=== PATIENT | female | born 1950 | race Two or more races ===

== ENCOUNTER 2021-08-02 18:30 | Observation (INO) | payer MEDICARE ==
[~2021-08-02] VITALS: Ht 149.9 cm; Wt 83.8 kg
[2021-08-03 12:51] VITALS: BP 138/85
== END 2021-08-03 18:00 | disposition home or self-care (01) ==
LOC: ED 19:00 → EDIP 22:50 → INTOOBSV 22:50 → 4NW 08-03 00:42
PROVIDERS: ADMIT Family Medicine; ATTEND Internal Medicine
DX: K52.9 Noninfective gastroenteritis and colitis, unspecified (principal); N39.0 Urinary tract infection, site not specified; E11.9 Type 2 diabetes mellitus without complications; I10 Essential (primary) hypertension; K21.9 Gastro-esophageal reflux disease without esophagitis; E03.9 Hypothyroidism, unspecified; J45.909 Unspecified asthma, uncomplicated; G25.81 Restless legs syndrome; E78.5 Hyperlipidemia, unspecified; Z68.35 Body mass index [BMI] 35.0-35.9, adult; Z79.899 Other long term (current) drug therapy
CPT/HCPCS: 36415; 74022; 74177; 80053; 81001; 82962; 83036; 83605; 83690; 84443; 84484; 85025; 87086; 87147; 93005; 96361; 96365; 96375; 99285; G0378; J0696; J1170; J2405; J7030; J7120; Q9967